=== PATIENT | female | born 1960 | race Caucasian/White ===

== ENCOUNTER 2021-01-29 14:33 | Outpatient (CLI) | payer BC, SELFPAY ==
--- NOTE | 2021-01-29 15:00 | ECG_ITS ---
Measurements Intervals [place] Rate: 53 P: 53 NC: 192 QRS: 14 QRSD: 91 T: 51 QT: 418 QTc: 394 Interpretive Statements SINUS BRADYCARDIA POOR R WAVE PROGRESSION, ANTERIOR LEADS BORDERLINE T WAVE ABNORMALITY- ANTERIOR LEADS BASELINE ARTIFACT- I, II, III, AVR, AVL, AVF BORDERLINE ECG Electronically Signed On 01-29-2021 15:27:30 [employer] by Matty Phillips D.O.
== END 2021-01-29 14:34 | disposition home or self-care (01) ==
LOC: ANHSURGERY 14:39
PROVIDERS: PCP Internal Medicine; Visit Provider Otolaryngology
DX: I10 Essential (primary) hypertension (principal); Z01.818 Encounter for other preprocedural examination; R94.31 Abnormal electrocardiogram [ECG] [EKG]
CPT/HCPCS: 93005

== ENCOUNTER 2021-02-02 01:17 | Day surgery (SDC) | payer BC, SELFPAY ==
--- NOTE | 2021-01-22 09:20 | PC.NURSE ---
Report to the Outpatient Waiting Room, entrance under the green pavilion located off [facility], at time __07__ on date __02/02/21 . OR Time: . - You and your visitor will be asked a series of questions to screen for COVID 19 for your protection. - A mask is required within the hospital. - Only one visitor is allowed at this time. Patient visitors will be guided where to wait when not with patient. Preoperative COVID Testing Requirements: No COVID Test needed if: (proof is required; if not received patient will have Rapid Test prior to entry) - Patient has received COVID Vaccine at least 14 days prior to procedure date or - Patient has positive COVID test result within last 90 days of surgery date. COVID Test needed if above criteria is not met If not COVID vaccinated a COVID test must be conducted within 72 hours of surgery and patient is asked to isolate self from time of testing until procedure. You will go to the [facility] for your COVID testing. The [facility] Testing site is located at the corner of [address] [facility]. You will only be called if COVID results are positive and your surgeon may reschedule your elective surgery date. Patients may have clear liquids (water, carbonated beverages, clear teas, apple juice) until 3 hours prior to surgery with a maximum of 20 ounces. - No food from midnight until time of surgery - Infants may have breast milk until 4 hours before surgery, infant formula 6 hours prior to surgery. - Children will be allowed to drink immediately following surgery. If applicable, please bring a bottle or sippy cup to assist with drinking. Juice, water, soda, and popsicles are readily available. For infants on formula, please bring formula the day of surgery. Pacifiers are allowed. Take the following medications with a SIP of water the morning of surgery: ____if needed xanax Medications to discontinue per physician Date to take last dose Please no make-up, nail bulgarian, hairspray, perfume, deodorant, or body powder the day of surgery. No jewelry (including any body piercings) or valuables the day of surgery, leave them at home. Please take a shower or bath the night before, or the morning of, surgery with an antibacterial soap. Wear comfortable, loose fitting clothing. Children are encouraged to wear pajamas. - Jewelry must be removed prior to entering the operating room. Rings and piercings that are not removed may be cut off. - The hospital will not accept responsibility for valuables. - Please leave all valuables, including medications, at home the day of surgery. If you are going home after surgery, a licensed wagon driver must drive you home. - NO public transportation without another adult. - We recommend that an adult stay with you for 24 hours following discharge. - We also recommend that you do not drive, make important decision, drink alcoholic beverages, or take any drugs that were not prescribed by your health care provider for at least 24 hours after your discharge time. For Pediatric surgeries, we recommend two adults accompany the child home (only one inside the building at this time). Follow any additional instructions given to you from your surgeon. Telephone instructions given to ____patient and asked if any additional questions and then verbalized understanding. Patient advised to call surgeon office or pre surgery nurse liaison [phone] if any additional questions.
[2021-01-22 09:33] VITALS: BMI 35.4
--- NOTE | 2021-01-31 12:58 | PM.IMHP ---
H&P: HPI History of Present Illness Date/Time: 01/31/21 12:58 Chief Complaint: choking, coughing, neck compression, right thyroid nodule Narrative: patient presents for planned surgical procedure. No change in symptoms. No change in history. Review of Systems Constitutional: Constitutional: Denies fatigue, Denies fever(s) and Denies lethargy Eyes: Eyes: Denies blurry vision and Denies change in vision ENT: Reports as per HPI Cardiovascular: Cardiovascular: Denies chest pain Respiratory: Respiratory: Denies cough Endocrine: Endocrine: Denies fatigue Hematologic/Lymphatic: Hematologic/Lymphatic: Denies easy bleeding, Denies easy bruising and Denies lymphadenopathy Allergic/Immunologic: Allergic/Immunologic: Denies seasonal rhinorrhea [facility] Past Medical History Medical History (Updated 12/27/20 @ 12:47 by Tomi Helton MD) Anxiety Coughing Gastric reflux Hypertension Surgical History Surgical History History of hysterectomy History of pancreatectomy Family History Family History (Updated 12/27/20 @ 10:05 by Sheila Vasquez CMA) Mother Heart disease Thyroid disorder Other Diabetes mellitus Grandparent Breast cancer Social History Social History Smoking packs per day: 0.5 Smoking cigarettes per day: 10.0 Years smoked: 30 Smoking pack-years: 15.00 Smoking status: Current every day smoker Tobacco type: cigarettes Second hand tobacco smoke exposure: Yes Alcohol intake: current Drinks per week: 7 Alcohol use details: 1 glass of wine at night time Substance use: never Substance use type: does not use Spiritual care concerns: No Meds Home Medications and Allergies Home Medications Medication Instructions Recorded Confirmed Type alprazolam 0.25 mg tablet 0.25 mg PO .PRN tablet 04/25/20 01/22/21 History metoprolol succinate 200 mg PO DAILY 04/25/20 01/22/21 History paroxetine HCl 40 mg tablet 40 mg PO DAILY 04/25/20 01/22/21 History pantoprazole [Protonix] 40 mg PO BID 01/22/21 01/22/21 History Allergies Allergy/AdvReac Type Severity Reaction Status Date / Time morphine Allergy Unknown SEDATION Verified 01/22/21 08:59 AND QUIT BREATHING, HAD TO GIVE NARCAN Exam Const: General: cooperative, healthy appearing, comfortable, well developed and alert HENMT: Head: normal to inspection, normocephalic and atraumatic Ears: hearing grossly normal bilaterally, external ears normal, TM's normal bilaterally and EAC's normal General nose exam: Normal external nose present, Normal nares present, No nasal polyps present, Normal nasal mucous membranes and turbinates present and Normal septum present Face and sinus: normal facial exam Mouth: Yes Normal oral and palatal mucosa present, Yes lip normal, Yes tongue normal, Yes oropharynx normal and Yes moist mucous membranes Teeth and gingiva: dentition normal and gingiva normal Throat: posterior oropharynx normal, tonsils normal and uvula midline Eyes: General: appearance normal, both eyes and all related structures Periorbital: periorbital findings normal Eyelids: eyelids normal Conjunctivae: conjunctivae normal Sclera: sclerae normal Neck: Neck: normal visual inspection, full ROM and no lymphadenopathy Thyroid: asymmetrical and solitary palpable nodule Lymphatic: no lymphadenopathy noted Resp: Effort & Inspection: normal respiratory effort and able to speak in complete sentences Cardio: Jugular venous distension: no JVD Neuro: Cranial nerves: Yes CN's II-XII intact bilaterally Assessment and Plan Assessment and plan (1) Right thyroid nodule: Code(s): E04.1 - Nontoxic single thyroid nodule Status: Acute Assessment and Plan: Plan is for the operating room for right-sided thyroid lobectomy with recurrent laryngeal nerve monitoring. The risks were
[2021-02-02] VITALS (10 sets, daily range): BP systolic 108–145; BP diastolic 68–87; PULSE 60–69; RESP 12–16; TEMP 36.2; O2SAT 93–99
[2021-02-02] MEDS: LACTATED RINGERS 1,000 ML 30 ML IV CONT ×2 (06:17→10:16)
[2021-02-02] MEDS: ACETAMINOPHEN 500 MG TABLET 1000 MG PO (06:18)
--- NOTE | 2021-02-02 07:15 | WPDHPUPDATE1 ---
History and Physical Update Update Date/Time: 02/02/21 07:15 History and Physical has been reviewed, including an updated exam of the patient. There are NO changes in the patient's condition. Risks, benefits, and alternatives have been discussed and questions answered. Patient agrees to proceed with procedure.
--- NOTE | 2021-02-02 07:39 | P.PNAN_ITS ---
Anes - Initial Pre Proc Eval Procedure: Operation Date: 02/02/21 08:00 Proposed Procedures p Right Thyroidectomy - Tomi Helton MD Date/Time: 02/02/21 07:39 Surgeon: Tomi Helton MD Pre Op Diagnosis: right thyroid nodule Patient Data Age: 60 Gender: F Height: 1.6 m Weight: 88.5 kg Allergies Allergy/AdvReac Type Severity Reaction Status Date / Time morphine Allergy Unknown SEDATION Verified 02/02/21 06:24 AND QUIT BREATHING, HAD TO GIVE NARCAN Home Medications Medication Instructions Recorded Confirmed Type alprazolam 0.25 mg tablet 0.25 mg PO .PRN tablet 04/25/20 02/02/21 History metoprolol succinate 200 mg PO DAILY 04/25/20 02/02/21 History paroxetine HCl 40 mg tablet 40 mg PO DAILY 04/25/20 02/02/21 History pantoprazole [Protonix] 40 mg PO BID 01/22/21 02/02/21 History Patient hx anesthesia problems: none Family hx anesthesia problems: none Results Review: All pre-operative results and documents have been reviewed as part of the pre-operative evaluation. [facility] Past Medical History Medical History Anxiety Coughing Gastric reflux Hypertension Psoriasis Surgical History Surgical History History of hysterectomy History of pancreatectomy Family History Family History Mother Heart disease Thyroid disorder Other Diabetes mellitus Grandparent Breast cancer Social History Social History Smoking packs per day: 0.5 Smoking cigarettes per day: 10.0 Years smoked: 30 Smoking pack-years: 15.00 Smoking status: Current every day smoker Tobacco type: cigarettes Second hand tobacco smoke exposure: Yes Alcohol intake: current Drinks per week: 7 Alcohol use details: 1 glass of wine at night time Substance use: never Substance use type: does not use Living arrangements: with family Spiritual care concerns: No Anes - Eval Final PreProcedure Day of Procedure 02/02/21 07:39 Patient weight: obese Heart: regular rate and rhythm Lungs: decreased breath sounds Airway: Mallampati scale class III Neurological: alert and oriented Last oral intake: >/= 8 hours ASA classification: III Emergent: no Anesthetic plan: proceed Anesthesia type and monitoring: general ETT and standard monitoring Results Review: All pre-operative results and documents have been reviewed as part of the pre-operative evaluation. Informed Consent: The patient's anesthetic plan and its attendant risks and benefits were discussed with the patient/family/POA. Questions were solicited and answers provided to the satisfaction of the patient/family/POA.
[2021-02-02] MEDS: ceFAZolin 2 GM/D5W 50 ML 2 GM/50 ML BAG IVPB (07:57)
[2021-02-02] MEDS: LIDO 1%/EPINEPHRINE 1:100,000 10 ML VIAL 50 ML INFILTRATE (08:15)
--- NOTE | 2021-02-02 10:30 | P.OP_ITS ---
Procedure Note - Detailed Date of Procedure 02/02/21 Pre-op Diagnosis right thyroid nodule, neck impression, choking, coughing Post-op Diagnosis same Procedure Performed right thyroid lobectomy Surgeon Tomi Helton MD Contemporary [employer] [place] Anesthesia general Indications see above Findings thyroid nodule with extra portion of tissue emanating from the right inferior thyroid lobe difficult to ascertain if attached to lobe likely attached removed as well sent for pathology separately small portion of tissue left over the cricoid thyroid joint protecting the right-sided recurrent laryngeal nerve which stimulated postoperative Description of Procedure patient correctly identified consent verified. Patient brought to operating room. Time-out performed. Anesthesia induced, patient intubated with Nims monitoring tube. Names nerve monitoring setup. Second timeout performed. 2 cc of 1% lidocaine with 1 100,000 parts epinephrine injected deep to a pre drawn surgical incision 2 fingerbreadths above the sternal notch. Approximately 5 cm in length. An [place] on a fashion in a relaxed skin tension line. Patient then prepped and draped for the aforementioned procedure. Fifteen blade utilized to cut through the skin down to the platysma Bovie electrocautery at a setting of 10 utilized to dissect through the platysma. Skin hooks utilized superior inferior subplatysmal flaps elevated dura hooks placed midline raphe identified Bovie electrocautery as well as blunt dissection utilized to dissect down to thyroid right thyroid lobe a sec did superior portion freed from vessels and nerves using Bovie sorry bipolar electrocautery and Abdulaziz as well as scissors. Ligature also utilized. Middle thyroid vein identified cauterized inferior thyroid vessels cauterized the nerve was identified deep to the tissues using nerve stimulator. Small portion of tissue left over the cricoid thyroid joint nerve stimulated found postoperative post thyroid removal stimulated. Of note there is a small portion of tissue which appeared to be emanating from the right inferior thyroid pole this was also removed and sent separately for pathology. Thyroid lobe removed Anesthesia asked to Valsalva no further bleeding noted. Total blood loss approximately 15 cc. The wound was copiously irrigated with sterile normal saline. Strap muscles a drain placed sutured to the skin with a 3 0 nylon suture. Strap muscles closed in the superior portion using 3 0 interrupted Vicryl sutures platysma closed and deep dermal layer was closed with 3 0 interrupted Vicryl sutures as well. Skin You placed skin glue placed over the skin. I performed all dictated portions of the procedure there were no complications. Care the patient was turned over to Anesthesiology. Estimated Blood Loss -15.0 Drains Yes Packing No Pathology yes Complications No immediate complications Condition stable Disposition PACU
--- NOTE | 2021-02-02 10:48 | SUR.PHASEI ---
1048- swallows with minimal discomfort. trach midline with swallowing. Speech clear. Dressings dry, drain empty.
[2021-02-02] MEDS: fentaNYL CITRATE INJ (*CRX) 100 MCG/2 ML VIAL 25 MCG IV PUSH (11:12)
[2021-02-02] MEDS: oxyCODONE HCL (*CRX) 5 MG TAB IR PO (12:23)
== END 2021-02-02 12:53 | disposition home or self-care (01) ==
PROVIDERS: PCP Internal Medicine; Visit Provider Otolaryngology
PROC: (CPT 60220; principal; 2021-02-02 08:00)
DX: E04.1 Nontoxic single thyroid nodule (principal); E06.5 Other chronic thyroiditis; I10 Essential (primary) hypertension; K21.9 Gastro-esophageal reflux disease without esophagitis; F41.8 Other specified anxiety disorders; L40.9 Psoriasis, unspecified; F17.210 Nicotine dependence, cigarettes, uncomplicated; E66.9 Obesity, unspecified; Z68.34 Body mass index [BMI] 34.0-34.9, adult
CPT/HCPCS: 60220; 88305; 88307; A9270; J0330; J0690; J1100; J1170; J2250; J2405; J2704; J3010; J7120